=== PATIENT | female | born 1960 | race Caucasian/White ===

== ENCOUNTER 2022-12-20 09:36 | Day surgery (SDC) | payer MEDICAID ==
[2022-12-18 15:48] LABS: BASOPHILS # (AUTO) 0.1 X10'3 (0-0.2); BASOPHILS % (AUTO) 0.8 % (0-1); EOSINOPHILS # (AUTO) 0.1 X10'3 (0-0.9); EOSINOPHILS % (AUTO) 0.9 % (0-6); LYMPHOCYTES # (AUTO) 2.1 X10'3 (1.1-4.8); LYMPHOCYTES % (AUTO) 21.7 % (21-51); MEAN CORPUSCULAR HEMOGLOBIN 27.5 PG (27.0-31.0); MEAN CORPUSCULAR HGB CONC 31.9 g/dL (33.0-36.5); MEAN CORPUSCULAR VOLUME 86.5 FL (78-98); MEAN PLATELET VOLUME 9.1 FL (7.4-10.4); MONOCYTES # (AUTO) 0.9 X10'3 (0-0.9); MONOCYTES % (AUTO) 9.3 % (2-12); NEUTROPHILS # (AUTO) 6.5 X10'3 (1.8-7.7); NEUTROPHILS % (AUTO) 67.3 % (42-75); PRE OP HEMATOCRIT 40.6 % (35.0-45.0); PRE OP HEMOGLOBIN 12.9 g/dL (12.0-16.0); PRE OP PLATELET COUNT 443 X10'3 (140-440); RED CELL DISTRIBUTION WIDTH 15.9 % (11.5-14.5)
[2022-12-18 16:00] LABS: BLOOD UREA NITROGEN 15 MG/DL (7-18); BUN/CREATININE RATIO 19.7 (10.0-20.0); CHLORIDE 100 MMOL/L (99-107); CREATININE 0.76 MG/DL (0.40-0.90); PRE OP ANION GAP 13 (8-16); PRE OP GLUCOSE 103 MG/DL (70-104); PRE OP POTASSIUM 3.5 MMOL/L (3.4-5.1); PRE OP SODIUM 138 MMOL/L (135-145); eGFR 77 ML/MIN
[2022-12-18 16:01] LABS: ALBUMIN 4.1 G/DL (3.4-5.0); ALBUMIN/GLOBULIN RATIO 0.9 (1.1-1.5); ALKALINE PHOSPHATASE 96 IU/L (46-116); PRE OP ALT 36 U/L (30-65); PRE OP AST 25 U/L (10-37); PRE OP BILIRUB, TOTAL 0.4 MG/DL (0.0-1.0); TOTAL PROTEIN 8.6 G/DL (6.4-8.2)
[2022-12-20] VITALS (7 sets, daily range): BP systolic 103–162; BP diastolic 39–98
[~2022-12-20] VITALS: Ht 160 cm; Wt 118.8 kg
[~2022-12-20 09:36] MED LIST: ANAS1TAB10 PO; ASCO-134 PO; ATOR10TA70 PO; BUDE10.26 PO; BUPIVAcaine/PF 2.5mg/ml (0.25%) 10ml vial ONE; CALC-1260 PO; CETI-90 PO; CHOL20003 PO; EMPA10TA PO; GLIP10TA11 PO; HYDR25TA5 PO; LIDOcaine 0.5% (5mg/ml) 50ml vial ONE; LOSA100T57 PO; METF-1203 PO; MULT-1085 PO; PANT40TA54 PO; VITA-268 PO; albuterol 2.5 MG/3 ML nebule NEB ONE; famotidine 20mg tablet PO ONE; ringers solution, lacted 1,000 ML IV SCH
[2022-12-20] MEDS ORDERED: fentaNYL/PF 50MCG/1 ML 2ML syringe ONE (11:05)
[2022-12-20] MEDS ORDERED: midazolam 1 mg/ML 2ml injection ONE (11:08)
--- NOTE | 2022-12-20 11:26 | NUR ---
Received from OR via [facility] TO ROOM 8 RECOVERY , accompanied by Anesthesiologist DR VEGA and report given by Anesthesiolgist. PT PRESENTS WITH 20G RIGHT HAND, LEFT HAND DRESSING GENE KERN. Addendum: 12/20/22 at 1144 by Elizabeth Camara RN, RN Amended: Links added.
--- NOTE | 2022-12-20 12:06 | NUR ---
PATIENT A&OX4, DENIES PAIN, V/S WNL, SCD OFF, 20G TO LEFT HAND D/C, PT PAIN 0/10. DC INSTRUCTIONS REVIEWED ANUPAMA PT, PT VERBALIZED UNDERSTANDING WITH NO FIRTHER QUESTIONS AT THIS TIME PT WHEELED OUT OF HOSPITAL IN WHEEL[place] TO PT WHO GAVE RIDE HOME. Addendum: 12/20/22 at 1218 by Elizabeth Camara RN, RN Amended: Links added.
== END 2022-12-20 12:06 | disposition home or self-care (01) ==
LOC: PAS 09:36
PROVIDERS: ATTEND Orthopaedic Surgery Hand Surgery
DX: M65.311 Trigger thumb, right thumb (principal); M65.331 Trigger finger, right middle finger; I10 Essential (primary) hypertension; K21.9 Gastro-esophageal reflux disease without esophagitis; E11.9 Type 2 diabetes mellitus without complications; C50.919 Malignant neoplasm of unspecified site of unspecified female breast; Z98.890 Other specified postprocedural states; Z79.899 Other long term (current) drug therapy
CPT/HCPCS: 26055; 36415; 80053; 82948; 85025; 93005; J2250; J3010; J3490; J7030; J7120; Z7506; Z7512; A4215